=== PATIENT | male | born 1965 | race Caucasian/White ===

== ENCOUNTER → 2024-04-01 06:17 | Day surgery (SDC) | payer BC, SELFPAY | LOC: GI 06:17 | PROVIDERS: ATTENDING PHYSICIAN Specialist | DX: Z12.11 Encounter for screening for malignant neoplasm of colon (principal); K57.30 Diverticulosis of large intestine without perforation or abscess without bleeding; K22.89 Other specified disease of esophagus; R12 Heartburn; Z86.0101 Personal history of adenomatous and serrated colon polyps | CPT/HCPCS: 43239; G0105; 88305 ==